=== PATIENT | female | born 1975 | race Caucasian/White ===

== ENCOUNTER → 2017-01-18 | Outpatient (CLI) | payer BC ==
[~2017-01-18] MED LIST: CHN/1 PO; ONDA4TAB10 SL; PRAM0.129 PO; PRLSR20 PO
--- NOTE | 2017-01-18 16:29 | MAMMOGRAPHY REPORT ---
BILATERAL DIGITAL DIAGNOSTIC MAMMOGRAM TOMOSYNTHESIS WITH CAD AND TARGETED BILATERAL ULTRASOUND: 01/01 CLINICAL HISTORY: 41 year old woman presents with a new palpable lump in the right breast and a palp able lump in the left breast that she has felt for a few years. TECHNIQUE: Bilateral breast tomosynthesis in addition to standard 2D mammography was performed. Curr ent study was also evaluated with a Computer Aided Detection (CAD) system. COMPARISON: Comparison is made to exams dated: 10/07/2015 mammogram, 04/12/2015 mammogram, 09/10/2014 m ammogram, and 03/07/2014 mammogram. BREAST COMPOSITION: The tissue of both breasts is heterogeneously dense, which may obscure small ma sses. FINDINGS: [place] palpable markers were placed on the skin in the right upper outer and left upper outer quadrants, denoting the areas of palpable concern pointed out by the patient. A linear scar m arker overlies the left periareolar breast. Bilateral nipple spacer jewelry is also identified. Th ere are a few benign-appearing calcifications anteriorly within the breasts. There are multiple cecelia ateral partially circumscribed masses scattered throughout the breasts. No obvious spiculated or ir regular mass, architectural distortion or cluster of suspicious microcalcifications is seen. Targeted ultrasound was performed in the areas of concern pointed out by the patient (within the 10: 00 right breast, 5 cm from the nipple, and in the 2:00 left breast). In the right 10:00 breast, 5 c m from the nipple, there is an oval parallel circumscribed hypoechoic and anechoic cystic appearing mass measuring 10.2 x 6.6 x 10.0 mm. Another similar appearing adjacent masses seen in the 10:00 ri ght breast, 5 cm from the nipple, measuring 8.0 x 8.4 mm. Multiple other smaller round and oval ane choic and hypoechoic cystic-appearing masses are seen throughout the entire 10:00 axis of the right breast seen on the cine clip. Within the left 2:00 breast, 3 cm from the nipple, there is a hypoech oic solid versus cystic mass that is both lobulated and angular. This measures 6.1 x 3.6 x 4.8 mm. A larger cystic-appearing anechoic and hypoechoic mass is also seen in the 2:00 left breast, 3 cm f rom the nipple, measuring 11.3 x 7.8 mm. Another anechoic cyst is seen in the 2:00 left breast, 1 c m from the nipple, measuring 7.0 x 5.3 mm. Multiple other smaller round and oval cysts are scattere d in the left upper outer quadrant on ultrasound. The mass in the 2:00 left breast, 3 cm from the n ipple, was not clearly seen on prior available outside ultrasounds. Additionally, the hypoechoic in determinate mass in the 2:00 left breast, 6 cm from the nipple, previously documented in 2014 is no longer identified. IMPRESSION: ACR-BI-RADS CATEGORY 3: PROBABLY BENIGN, TARGETED ULTRASOUND ACR-BI-RADS CATEGORY 3: IN OBABLY BENIGN 1. Bilateral palpable masses in the breasts correlate with benign cysts on ultrasound. Numerous ot her anechoic simple and hypoechoic, mildly complicated cysts are scattered in the breasts, most nume juan in the upper outer quadrants. However there is an indeterminate hypoechoic solid-appearing mas s in the 2:00 left breast that could represent a benign fibroadenoma. Given that this was not previ ously seen on prior outside ultrasounds to document stability, a short interval follow-up targeted l eft breast ultrasound is recommended to ensure stability in 6 months. These results and recommendations were discussed with the patient at the time of the exam. She tent atively scheduled the follow-up appointment prior to leaving our department. Approximately 10% of breast cancers are not detected with mammography. A negative mammographic repor t should not delay biopsy if a clinically suggestive mass is present. Carol Isaac M.D. ay/:01/18/2017 14:22:39 Tour Leader: Coretta POLANCO(Rufus)(Erwin), [facility] letter sent: Follow Up Recommended 3 BI-RADS Code: ACR-BI-RADS Category 3: Probably Benign Ultrasound BI-RADS: ACR-BI-RADS Category 3: P robably Benign
== END | disposition home or self-care (01) ==
LOC: C.MAMM 08:30
PROVIDERS: ATTEND Physician Assistant
DX: N63 Unspecified lump in breast (principal)

== ENCOUNTER 2017-02-28 13:33 | Emergency (ER) | payer BC ==
[~2017-02-28] VITALS: Ht 172.7 cm; Wt 56.3 kg
[2017-02-28 13:40] VITALS: TEMP 36.3; Ht 172.7 cm; Wt 56.3 kg
[2017-02-28] MEDS ORDERED: PRLSR20 PO (13:56)
[2017-02-28] MEDS ORDERED: PRAM0.129 PO (13:57)
[2017-02-28] MEDS ORDERED: CHN/1 PO (13:57)
[2017-02-28] MEDS ORDERED: ONDANSETRON INJ 2 MG/ML 2 ML VIAL IV STA (14:01)
[2017-02-28] MEDS ORDERED: SODIUM CHLORIDE 0.9% 1000ML 1,000 ML IV STA (14:01)
--- NOTE | 2017-02-28 14:29 | EMERGENCY ROOM VISIT NOTE ---
History Report prepared by Catracho: Kate Rizzo Under the Supervision of: Ester PrietoO. First contact with patient: 13:53 Chief Complaint: ABDOMINAL PAIN Stated Complaint: PAIN SEVERE STOMACH/NAUSEA History of Present Illness The patient is a 41 year old female who presents to the Emergency Room with complaints of constant severe upper abdominal pain beginning a couple of hours ago. The patient states that she ate a bowl of cereal this morning and her symptoms began within 5 minutes of eating. She complains of diarrhea, vomiting, and nausea. She notes that vomiting relieves her symptoms for a very short period of time. She denies any chest pain and shortness of breath. The patient reports that she had her gallbladder removed just over a year ago and has had similar symptoms in the past. She notes that this has been happening to her about once a month for the past year and she is usually treated with nausea medication. She states that she is on her menstrual period and reports that has been slightly more irregular than usual recently. Source of History: patient Onset: a couple hours ago Position: abdomen Symptom Intensity: severe Timing: constant Modifying Factors (Relieving): other (vomiting) Associated Symptoms: + diarrhea, + nausea, + vomiting, No SOB, No chest pain Review of Systems See HPI for pertinent positives & negatives. A total of 10 systems reviewed and were otherwise negative. Past Medical & Surgical Medical Problems: (1) Stomach problems Surgical Problems: (1) History of cholecystectomy Family History FH: cancer FH: diabetes mellitus FH: seizures FHx: hypertension Social History Smoking Status: Current Every Day Smoker Drug Use: none Marital Status: Housing Status: lives with family Occupation Status: employed Current/Historical Medications Scheduled Omeprazole (Prilosec), 20 MG PO DAILY Ondasetron Odt (Zofran Odt), 4 MG SL Q6H Pramipexole (Mirapex), 0.125 MG PO DAILY Varenicline (Chantix), 1 MG PO DIRECTED Allergies Coded Allergies: No Known Allergies (Unverified , 02/28/17) Physical Exam Vital Signs Date Time Temp Pulse Resp B/P Pulse Ox O2 Delivery O2 Flow Rate FiO2 02/28/17 17:46 77 18 117/49 97 02/28/17 16:43 61 16 108/84 100 02/28/17 16:31 156/82 02/28/17 16:30 64 16 100 02/28/17 16:01 147/81 02/28/17 16:00 55 16 100 02/28/17 15:36 58 19 129/66 100 Room Air 02/28/17 15:32 129/66 02/28/17 15:30 54 20 97 02/28/17 15:10 59 02/28/17 13:40 36.3 65 20 150/89 99 Room Air Physical Exam GENERAL: Patient is awake, alert, and very anxious and uncomfortable appearing. EYES: The conjunctivae are clear. The pupils are round and reactive. EARS, NOSE, MOUTH AND THROAT: The nose is without any evidence of any deformity. Mucous membranes are moist tongue is midline NECK: The neck is nontender and supple. RESPIRATORY: Normal respiratory effort is noted there is no evidence of wheezing rhonchi or rales CARDIOVASCULAR: Regular rate and rhythm noted there no murmurs rubs or gallops normal S1 normal S2 GASTROINTESTINAL: The abdomen is soft with diffuse tenderness to palpation, no specific guarding or rigidity noted. MUSCULOSKELETAL/EXTREMITIES: There is no evidence of gross deformity full range of motion is noted in the hips and shoulders SKIN: There is no obvious evidence of any rash. There are no petechiae, pallor or cyanosis noted. NEUROLOGIC: Patient is awake alert and oriented x3 strength is symmetric patellar reflexes are 2+ bilaterally Medical Decision & Procedures ER Provider Diagnostic Interpretation: Radiology results as stated below per my review and radiologist interpretation: PA CHEST RADIOGRAPH AND UPRIGHT AND SUPINE AP RADIOGRAPHS OF THE ABDOMEN FINDINGS: Lung volumes are normal. There is no consolidation. No pneumothorax or pleural effusion is present. Cardiac size is normal. Mediastinal contours are normal. Incidental note is made of chronic deformity of several left upper ribs. There is no consolidation. There is no free air. There are cholecystectomy clips. The bowel gas pattern is normal. IMPRESSION: 1. No free air or evidence of bowel obstruction. 2. No acute cardiopulmonary findings. Electronically signed by: Santos Starr M.D. 02/28/2017 3:06 PM Dictated Date/Time: 02/28/2017 3:[address] OF THE ABDOMEN AND PELVIS WITH CONTRAST CT DOSE: 259.75 mGy.cm FINDINGS: No pneumatosis, free air or portal venous gas is present. The liver, spleen, adrenal glands, kidneys and pancreas are normal. Borderline dilatation of the common bile duct is unchanged since prior exam and likely due to prior cholecystectomy. There is no peripancreatic infiltration. Caliber and wall thickness of small and large bowel are normal with the exception of apparent mild colonic wall thickening. There is no abscess or lymphadenopathy. The appendix is normal. The ovaries are not enlarged. There are multiple follicles within the ovaries. Skeletal structures are unremarkable. There is no evidence for a bowel obstruction. IMPRESSION: 1. No acute process within the abdomen or pelvis. Normal appendix. 2. Apparent mild colonic wall thickening which is likely due to underdistention. A nonspecific colitis appear similar but is considered less likely. Electronically signed by: Santos Starr M.D. 02/28/2017 5:17 PM Dictated Date/Time: 02/28/2017 5:12 PM Laboratory Results 02/28/17 14:40 Red Blood Count 4.65, Mean Corpuscular Volume 94.0, Mean Corpuscular Hemoglobin 32.5, Mean Corpuscular Hemoglobin Concent 34.6, Mean Platelet Volume 10.1, Neutrophils (%) (Auto) 82.5, Lymphocytes (%) (Auto) 11.7, Monocytes (%) (Auto) 5.0, Eosinophils (%) (Auto) 0.3, Basophils (%) (Auto) 0.2, Neutrophils # (Auto) 13.14, Lymphocytes # (Auto) 1.86, Monocytes # (Auto) 0.80, Eosinophils # (Auto) 0.04, Basophils # (Auto) 0.03 02/28/17 14:40 Test 02/28/17 14:40 02/28/17 15:55 White Blood Count 15.92 K/uL (4.8-10.8) Red Blood Count 4.65 M/uL (4.2-5.4) Hemoglobin 15.1 g/dL (12.0-16.0) Hematocrit 43.7 % (37-47) Mean Corpuscular Volume 94.0 fL (80-100) Mean Corpuscular Hemoglobin 32.5 pg (25-34) Mean Corpuscular Hemoglobin Concent 34.6 g/dl (32-36) Platelet Count 289 K/uL (130-400) Mean Platelet Volume 10.1 fL (7.4-10.4) Neutrophils (%) (Auto) 82.5 % Lymphocytes (%) (Auto) 11.7 % Monocytes (%) (Auto) 5.0 % Eosinophils (%) (Auto) 0.3 % Basophils (%) (Auto) 0.2 % Neutrophils # (Auto) 13.14 K/uL (1.4-6.5) Lymphocytes # (Auto) 1.86 K/uL (1.2-3.4) Monocytes # (Auto) 0.80 K/uL (0.11-0.59) Eosinophils # (Auto) 0.04 K/uL (0-0.5) Basophils # (Auto) 0.03 K/uL (0-0.2) RDW Standard Deviation 45.4 fL (36.4-46.3) RDW Coefficient of Variation 13.2 % (11.5-14.5) Immature Granulocyte % (Auto) 0.3 % Immature Granulocyte # (Auto) 0.05 K/uL (0.00-0.02) Anion Gap 7.0 mmol/L (3-11) Est Creatinine Clear Calc Drug Dose 79.0 ml/min Estimated GFR () 100.0 Estimated GFR (Non- 86.3 BUN/Creatinine Ratio 14.5 (10-20) Calcium Level 8.8 mg/dl (8.5-10.1) Total Bilirubin 0.5 mg/dl (0.2-1) Direct Bilirubin < 0.1 mg/dl (0-0.2) Aspartate Amino Transf (AST/SGOT) 22 U/L (15-37) Alanine Aminotransferase (ALT/SGPT) 26 U/L (12-78) Alkaline Phosphatase 72 U/L (45-117) Total Protein 7.8 gm/dl (6.4-8.2) Albumin 4.3 gm/dl (3.4-5.0) Lipase 96 U/L (73-393) Human Chorionic Gonadotropin, Qual NEG (NEG) Urine Color DK YELLOW Urine Appearance CLEAR (CLEAR) Urine pH 6.0 (4.5-7.5) Urine Specific [place] 1.027 (1.000-1.030) Urine Protein 1+ (NEG) Urine Glucose (UA) NEG (NEG) Urine Ketones 1+ (NEG) Urine Occult Blood 3+ (NEG) Urine Nitrite NEG (NEG) Urine Bilirubin NEG (NEG) Urine Urobilinogen NEG (NEG) Urine Leukocyte Esterase NEG (NEG) Urine WBC (Auto) 1-5 /hpf (0-5) Urine RBC (Auto) >30 /hpf (0-4) Urine Hyaline Casts (Auto) 5-10 /lpf (0-5) Urine Epithelial Cells (Auto) >30 /lpf (0-5) Urine Bacteria (Auto) NEG (NEG) Laboratory results per my review. Medications Administered Medications (Trade) Dose Ordered Sig/Lucius Route Start Time Stop Time Status Last Admin Dose Admin Sodium Chloride (Nss 1000ml) 1,000 ml @ 999 mls/hr Q1H1M STAT IV 02/28/17 14:01 02/28/17 15:01 DC 02/28/17 14:43 999 MLS/HR Morphine Sulfate (MoRPHine SULFATE INJ) 4 mg Q15M PRN IV 02/28/17 14:15 02/28/17 18:28 DC 02/28/17 15:06 4 MG Ondansetron HCl (Zofran Inj) 4 mg NOW STAT IV 02/28/17 14:01 02/28/17 14:03 DC 02/28/17 14:43 4 MG Hydromorphone HCl (Dilaudid Inj) 1 mg NOW STAT IV 02/28/17 16:29 02/28/17 16:30 DC 02/28/17 16:40 1 MG Oxycodone HCl (Roxicodone Immediate Rel 5MG Home Pack) 1 homepack UD ONCE PO 02/28/17 17:30 02/28/17 17:31 DC 02/28/17 17:39 1 HOMEPACK Ondansetron HCl (ZOFRAN ODT 4MG Home Pack) 1 homepack UD ONCE PO 02/28/17 17:30 02/28/17 17:31 DC 02/28/17 17:39 1 HOMEPACK ED Course 1353: The patient was evaluated in room C11B. A complete history and physical examination were performed. 1401: Zofran Inj 4mg IV, NSS 1,000 ml @ 999 mls/hr IV. 1415: Morphine Sulfate 4mg PRN IV pain. 1629: Dilaudid Inj 1mg IV. 1647: I reevaluated the patient and she is feeling better. 1730: Ondansetron HCl 1 homepack PO, Oxycodone HCl 1 homepack PO. 1736: Upon reevaluation, the patient is doing well. I discussed the results and treatment plan with the patient. She verbalized agreement of the treatment plan. She was discharged home. Medical Decision Differential diagnosis: Etiologies such as gastroenteritis, food borne illness, infections, appendicitis , diverticulitis, inflammatory bowel disease, obstruction, GI bleed, biliary pathology, as well as others were entertained. Medication Reconciliation: I attest that I have personally reviewed the patient' s current medications list. Blood pressure screening: Patient was found to have normal blood pressure on final screening and does not require follow-up. The patient is a 41-year-old female who presented to the emergency department for an evaluation of abdominal pain. The patient has a history of abdominal pain in the past. She's had her gallbladder removed pain but it did not seem to relieve her overall condition. The patient's physical exam was not consistent with an acute surgical abdomen however the white blood cell count was elevated. This reason a CT the abdomen and pelvis was obtained. I discussed the patient's laboratory and radiographic studies with her. She was treated with IV fluids IV pain medicine and IV antiemetics. On subsequent reevaluation she was feeling much better. She was encouraged to continue all medications as prescribed. She was also encouraged return to the emergency department immediately if symptoms change worsen or need arises. Impression Primary Impression: Chronic abdominal pain Additional Impression: Elevated WBCs Scribe Attestation The scribe's documentation has been prepared under my direction and personally reviewed by me in its entirety. I confirm that the note above accurately reflects all work, treatment, procedures, and medical decision making performed by me. Departure Information Dispostion Home / Self-Care Prescriptions Ondasetron Odt (ZOFRAN ODT) 4 Mg Tab 4 MG SL Q6H for Nausea, #20 TAB Prov: Jesus Manuel Alfaro, DO 02/28/17 Referrals Patricia Hirsch PA-C (PCP) Forms Call Back Authorization, HOME CARE DOCUMENTATION FORM, IMPORTANT VISIT INFORMATION Patient Instructions ED Abd Pain Unkn Cause Fem, My [facility] Additional Instructions Continue all medications as prescribed. Call your family doctor in the morning to schedule appointment. Rest and avoid any strenuous activity. Return to the emergency department immediately if symptoms change worsen or need arises. Problem Qualifiers Additional Impression: Elevated WBCs Leukocytosis type: unspecified Qualified Codes: D72.829 - Elevated white blood cell count, unspecified
[2017-02-28] MEDS: MoRPHine SULFATE 4 MG/ML 1 ML CARP\\VIAL IV PRN ×2 (14:45→15:06)
[2017-02-28 14:50] LABS: BASO % 0.2 %; BASO ABS # 0.03 K/uL (0-0.2); COMPLETE YES; EOS % 0.3 %; HEMATOCRIT 43.7 % (37-47); IG% 0.3 %; LYMPH % 11.7 %; LYMPH ABS # 1.86 K/uL (1.2-3.4); MEAN CORPUSCULAR HEMOGLOBIN 32.5 pg (25-34); MEAN CORPUSCULAR HGB CONC 34.6 g/dl (32-36); MEAN PLATELET VOLUME 10.1 fL (7.4-10.4); NEUT % 82.5 %; PLATELET COUNT 289 K/uL (130-400); RED BLOOD COUNT 4.65 M/uL (4.2-5.4); WHITE BLOOD COUNT 15.92 K/uL (4.8-10.8)
[2017-02-28 15:06] LABS: ALT/SGPT 26 U/L (12-78); AST/SGOT 22 U/L (15-37); BLOOD UREA NITROGEN 12 mg/dl (7-18); BUN/CREATININE RATIO 14.5 (10-20); CALCIUM 8.8 mg/dl (8.5-10.1); CARBON DIOXIDE 29 mmol/L (21-32); CHLORIDE 105 mmol/L (98-107); CREATININE 0.85 mg/dl (0.60-1.20); GLUCOSE 107 mg/dl (70-99); POTASSIUM 3.4 mmol/L (3.5-5.1); SODIUM 141 mmol/L (136-145)
--- NOTE | 2017-02-28 15:07 | DIAGNOSTIC IMAGING REPORT ---
PA CHEST RADIOGRAPH AND UPRIGHT AND SUPINE AP RADIOGRAPHS OF THE ABDOMEN CLINICAL HISTORY: Abdominal pain and nausea. COMPARISON STUDY: CT of the abdomen and pelvis January 14, 2016. FINDINGS: Lung volumes are normal. There is no consolidation. No pneumothorax or pleural effusion is present. Cardiac size is normal. Mediastinal contours are normal. Incidental note is made of chronic deformity of several left upper ribs. There is no consolidation. There is no free air. There are cholecystectomy clips. The bowel gas pattern is normal. IMPRESSION: 1. No free air or evidence of bowel obstruction. 2. No acute cardiopulmonary findings. Electronically signed by: Santos Starr M.D. 02/28/2017 3:06 PM Dictated Date/Time: 02/28/2017 3:04 PM
[2017-02-28 15:09] LABS: ALKALINE PHOSPHATASE 72 U/L (45-117)
[2017-02-28 15:21] LABS: PREG INTERNAL NEGATIVE QC NEG CLEAR BACKGROUND; PREG INTERNAL POSITIVE QC POS CONTROL LINE
[2017-02-28 16:08] LABS: URINE APPEARANCE CLEAR (CLEAR); URINE BILIRUBIN NEG (NEG); URINE COLOR DK YELLOW; URINE EPITHELIAL CELL AUTO >30 /lpf (0-5); URINE NITRITE NEG (NEG); URINE SPECIFIC GRAVITY 1.027 (1.000-1.030); UROBILINOGEN NEG (NEG)
[2017-02-28 16:19] LABS: MANUAL MICROSCOPIC REQUIRED? NO; REVIEW REQ? NO
[2017-02-28] MEDS ORDERED: HYDROmorphone INJ 1 MG/ML SYR IV STA (16:29)
[2017-02-28] MEDS ORDERED: OPTIRAY 320 IV PRN (17:15)
--- NOTE | 2017-02-28 17:19 | DIAGNOSTIC IMAGING REPORT ---
CT OF THE ABDOMEN AND PELVIS WITH CONTRAST CLINICAL HISTORY: Diffuse abdominal pain. Leukocytosis. COMPARISON STUDY: CT of the abdomen and pelvis January 14, 2016 and abdominal series February 28, 2017. TECHNIQUE: Following IV administration of 116 mL of Optiray-320, axial images of the abdomen and pelvis were obtained from the lung bases to the proximal femurs. Images were reviewed in the axial, sagittal, and coronal planes. IV contrast was administered without complication. CT DOSE: 259.75 mGy.cm FINDINGS: No pneumatosis, free air or portal venous gas is present. The liver, spleen, adrenal glands, kidneys and pancreas are normal. Borderline dilatation of the common bile duct is unchanged since prior exam and likely due to prior cholecystectomy. There is no peripancreatic infiltration. Caliber and wall thickness of small and large bowel are normal with the exception of apparent mild colonic wall thickening. There is no abscess or lymphadenopathy. The appendix is normal. The ovaries are not enlarged. There are multiple follicles within the ovaries. Skeletal structures are unremarkable. There is no evidence for a bowel obstruction. IMPRESSION: 1. No acute process within the abdomen or pelvis. Normal appendix. 2. Apparent mild colonic wall thickening which is likely due to underdistention. A nonspecific colitis appear similar but is considered less likely. Electronically signed by: Santos Starr M.D. 02/28/2017 5:17 PM Dictated Date/Time: 02/28/2017 5:12 PM
[2017-02-28] MEDS ORDERED: ONDANSETRON HOME PACK 4MG OD TAB PO ONE (17:30)
[2017-02-28] MEDS ORDERED: OXYCODONE IR HOME PACK PO ONE (17:30)
[2017-02-28] MEDS ORDERED: ONDA4TAB10 SL (17:32)
[2017-02-28 17:46] VITALS: BP 117/49; PULSE 77; O2SAT 97
== END 2017-02-28 17:47 | disposition home or self-care (01) ==
LOC: C.EDB 13:34 → C.EDC 17:47
DX: G89.29 Other chronic pain (principal); R10.10 Upper abdominal pain, unspecified; D72.829 Elevated white blood cell count, unspecified; F17.200 Nicotine dependence, unspecified, uncomplicated; Z83.3 Family history of diabetes mellitus; Z82.49 Family history of ischemic heart disease and other diseases of the circulatory system; Z82.0 Family history of epilepsy and other diseases of the nervous system